=== PATIENT | male | born 1975 | race Caucasian/White ===

== ENCOUNTER → 2017-01-11 | Outpatient (CLI) | payer OTHER ==
[~2017-01-11] MED LIST: NKHM
== END | disposition home or self-care (01) ==
LOC: RAD 10:32
DX: R05 Cough (principal); R06.02 Shortness of breath; J18.9 Pneumonia, unspecified organism

== ENCOUNTER → 2017-06-29 | Outpatient (CLI) | payer OTHER | END | disposition home or self-care (01) | LOC: RAD 07:30 | DX: R06.02 Shortness of breath (principal) ==

== ENCOUNTER → 2023-05-24 | Outpatient (CLI) | payer OTHER | END | disposition home or self-care (01) | LOC: RAD 07:32 | PROVIDERS: ATTEND Nurse Practitioner | DX: M48.07 Spinal stenosis, lumbosacral region (principal); M54.41 Lumbago with sciatica, right side ==

== ENCOUNTER 2023-06-19 02:37 | Emergency (ER) | payer OTHER ==
[~2023-06-19] VITALS: Ht 185.4 cm; Wt 90.7 kg
[2023-06-19 03:23] LABS: BASO # 0.1 10*3/uL (0.0-0.1); BASO % 0.9 % (0.0-1.0); EOS # 0.2 10*3/uL (0.0-0.4); EOS % 3.1 % (1.0-4.0); HEMATOCRIT 46.7 % (42.0-52.0); LYMPH # 1.9 10*3/uL (1.3-4.4); LYMPH % 24.3 % (27.0-41.0); MEAN CORPUSCULAR HGB 30.9 pg (27.0-31.0); MEAN CORPUSCULAR HGB CONC 34.7 g/dl (33.0-37.0); MEAN PLATELET VOLUME 11.2 fl (9.6-12.3); MONO # 0.5 10*3/uL (0.1-1.0); MONO % 5.9 % (3.0-9.0); NEUT # 5.1 10*3/uL (2.3-7.9); NEUT % 65.7 % (47.0-73.0); PLATELET COUNT AUTOMATED 205 10*3/uL (130-400); RED BLOOD COUNT 5.25 10*6/uL (4.50-5.90); RED CELL DISTRI WIDTH 12.1 % (0-14.5); WHITE BLOOD COUNT 7.8 10*3/uL (4.8-10.8)
[2023-06-19 03:34] LABS: ACT PARTIAL THROMBO TIME 25.6 SECONDS (20.0-32.1)
[2023-06-19 03:48] LABS: ALKALINE PHOSPHATASE 72 U/L (46-116); BUN 13 mg/dl (9-23); CHLORIDE 104 mmol/L (98-107); LIPASE 50 U/L (12-53); POTASSIUM 3.6 mmol/L (3.4-5.1); SGPT/ALT 33 U/L (10-49); TOTAL PROTEIN 7.7 gm/dL (6.0-8.0)
[2023-06-19] MEDS ORDERED: PEPCID AC10 M2 PO (04:49)
[2023-06-19] MEDS ORDERED: REGLAN10 M1 PO (04:49)
== END 2023-06-19 05:36 | disposition home or self-care (01) ==
LOC: ED 02:37
PROVIDERS: Internal Medicine
DX: K21.9 Gastro-esophageal reflux disease without esophagitis (principal)

== ENCOUNTER → 2024-04-02 | Outpatient (CLI) | payer OTHER ==
[~2024-04-02] MED LIST changes: +PEPCID AC10 M2 PO; +REGLAN10 M1 PO
== END | disposition home or self-care (01) ==
LOC: MRI 03-26 13:00
PROVIDERS: ATTEND Nurse Practitioner
DX: M54.12 Radiculopathy, cervical region (principal)

== ENCOUNTER 2025-01-21 17:08 | Inpatient (IN) | payer OTHER ==
[~2025-01-21] VITALS: Ht 185.4 cm; Wt 86.7 kg
[2025-01-21 17:13] VITALS: BP 144/90
[2025-01-21] MEDS ORDERED: OMEPRAZOLE10 MG PO (17:14)
[2025-01-21] MEDS ORDERED: Dicyclomine Hydrochloride 20 MG/10 ML OSYR PO STA (17:53)
[2025-01-21] MEDS ORDERED: Lidocaine Hydrochloride 15 ML UDC PO STA (17:53)
[2025-01-21] MEDS ORDERED: MG-AL HYDROXIDE/SIMETICONE 30 ML UDC PO STA (17:53)
[2025-01-21] MEDS ORDERED: SODIUM CHLORIDE 0.9% 1,000 ML IV ONE (18:30)
[2025-01-21] MEDS ORDERED: Ondansetron Hydrochloride 4 MG/2 ML VIAL IV ONE (18:30)
[2025-01-21] MEDS ORDERED: Pantoprazole Sodium 40 MG VIAL IV ONE (18:30)
[2025-01-21] MEDS ORDERED: Glucagon Hydrochloride 1 MG SYR IV ONE ×2 (18:45→19:10)
[2025-01-21] MEDS ORDERED: MORPHINE Sulfate 2 MG/ML SYR IV ONE (18:55)
[2025-01-21 22:54] LABS: HEMATOCRIT 46.3 % (42.0-52.0); MEAN CELL VOLUME 89.6 fl (80.0-94.0); MEAN CORPUSCULAR HGB 29.8 pg (27.0-31.0); MEAN CORPUSCULAR HGB CONC 33.3 g/dl (33.0-37.0); PLATELET COUNT AUTOMATED 223 10*3/uL (130-400); RED BLOOD COUNT 5.17 10*6/uL (4.50-5.90)
[2025-01-21 22:58] LABS: MANUAL DIFF REFLEX YES
[2025-01-21 23:13] LABS: ALKALINE PHOSPHATASE 114 U/L (46-116); BUN 16 mg/dl (9-23); CHLORIDE 107 mmol/L (98-107); POTASSIUM 3.8 mmol/L (3.4-5.1); SGPT/ALT 36 U/L (5-49); TOTAL PROTEIN 7.8 gm/dL (6.0-8.0)
[2025-01-21 23:16] LABS: PLATELET SUFFICIENCY NORMAL (NORMAL); TOTAL CELLS COUNTED 100 #CELLS
[2025-01-21 23:35] VITALS: BP 116/65
[2025-01-22] VITALS (7 sets, daily range): BP systolic 97–129; BP diastolic 60–71
[2025-01-22] MEDS ORDERED: Ondansetron Hydrochloride 4 MG/2 ML VIAL IV PRN (00:30)
[2025-01-22] MEDS ORDERED: BISACODYL 10 MG SUPP R PRN (00:30)
[2025-01-22] MEDS ORDERED: BISACODYL 5 MG TAB PO PRN (00:30)
[2025-01-22] MEDS ORDERED: ACETAMINOPHEN 650 MG SUPP R PRN (00:30)
[2025-01-22] MEDS ORDERED: Magnesium Hydroxide 30 ML UDC PO PRN (00:30)
[2025-01-22] MEDS ORDERED: SODIUM CHLORIDE 0.9% 1,000 ML IV ONE (00:45)
[2025-01-22 06:04] LABS: BASO % 0.4 % (0.0-1.0); EOS # 0.1 10*3/uL (0.0-0.4); EOS % 0.8 % (1.0-4.0); MEAN CELL VOLUME 89.7 fl (80.0-94.0); MEAN CORPUSCULAR HGB 29.5 pg (27.0-31.0); MEAN CORPUSCULAR HGB CONC 32.9 g/dl (33.0-37.0); MEAN PLATELET VOLUME 11.3 fl (9.6-12.3); MONO # 0.4 10*3/uL (0.1-1.0); MONO % 3.9 % (3.0-9.0); NEUT # 8.4 10*3/uL (2.3-7.9); NEUT % 77.8 % (47.0-73.0); PLATELET COUNT AUTOMATED 191 10*3/uL (130-400); RED BLOOD COUNT 4.68 10*6/uL (4.50-5.90); RED CELL DISTRI WIDTH 12.2 % (0-14.5); WHITE BLOOD COUNT 10.7 10*3/uL (4.8-10.8)
[2025-01-22 06:26] LABS: ALKALINE PHOSPHATASE 94 U/L (46-116); BUN 14 mg/dl (9-23); CHLORIDE 107 mmol/L (98-107); CHOLESTEROL 219 mg/dL (<200); LDL CHOLESTEROL 153 mg/dL (9-159); POTASSIUM 3.8 mmol/L (3.4-5.1); SGPT/ALT 29 U/L (5-49); TOTAL PROTEIN 6.5 gm/dL (6.0-8.0); TRIGLYCERIDES 92 mg/dl (<150)
[2025-01-22] MEDS ORDERED: Lactated Ringer's Solution 1,000 ML IV ONE (07:30)
[2025-01-22] MEDS ORDERED: PROPOFOL 200 MG/20 ML VIAL IV ONE (11:39)
[2025-01-22] MEDS ORDERED: Lidocaine Hydrochloride 5 ML VIAL IV ONE (11:39)
== END 2025-01-22 15:07 | disposition home or self-care (01) | DRG 395 ==
LOC: ED 17:08 → 4E 22:19 → EDHOLD 22:19 → 4E 23:01
PROVIDERS: ADMIT Internal Medicine; ATTEND Internal Medicine
PROC: 0D738ZZ Dilation of Lower Esophagus, Via Natural or Artificial Opening Endoscopic (ICD-10-PCS; principal; 2025-01-22)
DX: T18.128A Food in esophagus causing other injury, initial encounter (principal); W44.F3XA Food entering into or through a natural orifice, initial encounter; D72.828 Other elevated white blood cell count; J30.2 Other seasonal allergic rhinitis; R73.9 Hyperglycemia, unspecified; K21.9 Gastro-esophageal reflux disease without esophagitis; K22.2 Esophageal obstruction; G43.909 Migraine, unspecified, not intractable, without status migrainosus; Z82.49 Family history of ischemic heart disease and other diseases of the circulatory system; Z79.899 Other long term (current) drug therapy; Y93.89 Activity, other specified; Y92.89 Other specified places as the place of occurrence of the external cause; Y99.8 Other external cause status

== ENCOUNTER → 2025-08-26 | Outpatient (CLI) | payer OTHER ==
[~2025-08-26] MED LIST changes: +OMEPRAZOLE10 MG PO
== END ==
LOC: RAD 10:38
PROVIDERS: ATTEND Nurse Practitioner
DX: M54.16 Radiculopathy, lumbar region (principal); M54.12 Radiculopathy, cervical region